=== PATIENT | female | born 1995 | race Caucasian/White ===

== ENCOUNTER 2020-08-25 17:54 | Outpatient (REF) | payer OTHER, SELFPAY ==
[2020-08-25 18:07] LABS: MANUAL DIFF FLAG NO
[2020-08-25 18:33] LABS: Basophils Percent Auto 0.3 % (0-2); Eosinophils Absolute Auto 0.2 X10*3/uL (0.0-0.4); Eosinophils Percent Auto 1.4 % (0-4); Hemoglobin 14.1 g/dl (12.0-16.0); Imm Gran Abs Auto 0.02 X10*3/uL (0.00-0.03); Imm Gran Pct Auto 0.2 % (0.0-0.4); Lymphocytes Percent Auto 38.1 % (20-40); Mean Corpuscular HGB Conc 33.6 g/dl (31.0-35.0); Mean Corpuscular Volume 86.2 fL (80-98); Mean Platelet Volume 9.7 fL (9.4-12.3); Monocytes Absolute Auto 0.7 X10*3/uL (0.1-1.2); Monocytes Percent Auto 6.3 % (2-11); Neutrophils Absolute Auto 5.6 X10*3/uL (2.0-8.3); Neutrophils Percent Auto 53.7 % (45-73); Platelet Count 387 X10*3/uL (160-400); Red Blood Count 4.87 X10*6/uL (4.20-5.50); Red Cell Distribution Width 12.8 % (11.0-16.0); White Blood Count 10.5 X10*3/uL (4.8-10.8)
[2020-08-25 18:40] LABS: Alanine Aminotransferase 8 U/L (0-31); Albumin Level 4.6 g/dL (3.5-5.0); Alkaline Phosphatase 66 U/L (39-117); Anion Gap 17 (12-20); Aspartate Amino Transferase 13 U/L (5-31); Bilirubin Total 0.4 mg/dL (0.0-1.0); Blood Urea Nitrogen 9 mg/dL (9-16); Calcium 9.2 mg/dL (8.4-10.2); Carbon Dioxide 19 mmol/L (22-29); Chloride 104 mmol/L (96-108); Estimated Glomerular Filt Rate > 60; Glucose Random 84 mg/dL (60-115); Potassium 3.9 mmol/L (3.3-5.1); Sodium 136 mmol/L (135-145); Total Protein 7.2 g/dL (6.5-8.0)
[2020-08-25 19:00] LABS: Thyroid Stimulating Hormone 2.13 uIU/mL (0.32-4.0)
[2020-08-26 08:51] LABS: ~Hepatitis C Antibody Nonreactive (Nonreactive)
== END 2020-08-25 17:55 | disposition home or self-care (01) ==
LOC: HO.LAB 17:54
PROVIDERS: PCP Family Medicine; Visit Provider Family Medicine
DX: Z11.59 Encounter for screening for other viral diseases (principal)
CPT/HCPCS: 36415; 80053; 84443; 85025; 86803

== ENCOUNTER 2022-05-14 16:57 | Emergency (ER) | payer OTHER, SELFPAY ==
--- NOTE | ~2022-05-14 | XR_ITS ---
EXAMINATION: XR CHEST CLINICAL INFORMATION: Cough COMPARISON: None TECHNIQUE: Frontal view of the chest was obtained. FINDINGS: Cardiac silhouette is normal in size. The lungs are well aerated. There is no lobar consolidation. No pleural effusion or pneumothorax. XR/XR chest 1V IMPRESSION: No acute pulmonary pathology.
[2022-05-14 18:40] VITALS: BP 105/66; PULSE 87; RESP 18; TEMP 36.8; O2SAT 98; BMI 31.3
--- NOTE | 2022-05-14 18:40 | ED.GENADULT ---
HPI - General Adult General Chief complaint: Upper Respiratory Symptoms <Joslyn Ray MD - Last Filed: 05/14/22 18:49> Stated complaint: facial pain, n+v,congested <Joslyn Ray MD - Last Filed: 05/14/22 18:49> Time Seen by Provider: 05/14/22 19:54 <Joslyn Ray MD - Last Filed: 05/14/22 18:49> Source: patient <LISSY Chavarria - Last Filed: 05/15/22 01:09> Mode of arrival: ambulatory <LISSY Chavarria - Last Filed: 05/15/22 01:09> History of Present Illness HPI narrative: 26-year-old female with a past medical history of influenza presenting to the ED complaining of continued productive cough, sore throat, nasal congestion, and left-sided sinus pain with sinus drainage x2 wks. Admits was seen at another emergency department over the weekend, believes she finished course of Tamiflu without relief. Denies known fever, drainage from ear, hearing loss, inability to swallow, CP/SOB, abdominal pain <LISSY Chavarria - Last Filed: 05/15/22 01:09> Onset (ago): week(s) <LISSY Chavarria - Last Filed: 05/15/22 01:09> Related Data Home medications: Previous Rx's Medication Instructions Recorded azithromycin 250 mg tablet See Rx Instructions PO .COMPLEX #6 05/14/22 tabs benzonatate 100 mg capsule 100 mg PO TID PRN cough #14 caps 05/14/22 fluticasone propionate 50 2 spray intranasal DAILY #16 grams 05/14/22 mcg/actuation nasal spray,suspension (Flonase Allergy Relief) <Joslyn Ray MD - Last Filed: 05/14/22 18:49> Allergies/adverse reactions: Allergies Allergy/AdvReac Type Severity Reaction Status Date / Time No Known Allergies Allergy Verified 05/14/22 18:43 [No Known Allergies*] <Joslyn Ray MD - Last Filed: 05/14/22 18:49> Review of Systems Review of Systems: Constitutional: No Fever, No Chills ENT/Mouth: No Ear Pain, + Nasal Congestion, + Sinus Pain, No Hoarseness, + sore throat, + Rhinorrhea, No Swallowing Difficulty Cardiovascular: No Chest Pain, No SOB Respiratory: + Cough, + Sputum, No Wheezing Gastrointestinal: No Nausea, No Vomiting, No Diarrhea, No Constipation, No Abdominal pain Genitourinary: No Dysuria, No Urinary Frequency, No Hematuria, No Flank Pain Musculoskeletal: No joint pain, No Myalgias, No Joint Swelling Skin: No Skin Lesions, No rash Neuro: No Weakness <LISSY Chavarria - Last Filed: 05/15/22 01:09> Yes all other systems are reviewed and are negative <LISSY Chavarria - Last Filed: 05/15/22 01:09> Constitutional: Constitutional: Reports as per HPI <LISSY Chavarria - Last Filed: 05/15/22 01:09> [facility] Past Medical History Attestation statement: The following information was validated with the patient. <LISSY Chavarria - Last Filed: 05/15/22 01:09> Social History Social History: Social History Smoked in Last 30 Days: No Use of substances other than those prescribed or required for medical reasons: No Advance Directives: No Advance Directives Information Provided: No Patient : No <Joslyn Ray MD - Last Filed: 05/14/22 18:49> Physical Exam ED Vital Signs: Vital Signs - 24 hr 05/14/22 18:40 05/14/22 21:07 Temperature 98.3 F 98.9 F Pulse Rate 87 72 Respiratory Rate 18 16 Blood Pressure 105/66 108/64 Pulse Oximetry 98 99 Oxygen Delivery Method Room Air Room Air BMI result Body Mass Index 31.3 <Joslyn Ray MD - Last Filed: 05/14/22 18:49> Vital Signs - 24 hr 05/14/22 18:40 05/14/22 21:07 Temperature 98.3 F 98.9 F Pulse Rate 87 72 Respiratory Rate 18 16 Blood Pressure 105/66 108/64 Pulse Oximetry 98 99 Oxygen Delivery Method Room Air Room Air BMI result Body Mass Index 31.3 <LISSY Chavarria - Last Filed: 05/15/22 01:09> Const General: cooperative, healthy appearing and no acute distress <LISSY Chavarria - Last Filed: 05/15/22 01:09> Orientation/consciousness: patient oriented x3 <LISSY Chavarria - Last Filed: 05/15/22 01:09> Limitations: no limitations <LISSY Chavarria Last Filed: 05/15/22 01:09> HENMT Head: Yes normal to inspection and Yes atraumatic <LISSY Chavarria - Last Filed: 05/15/22 01:09> Ears: hearing grossly normal bilaterally, TM's normal bilaterally and mastoids normal <LISSY Chavarria - Last Filed: 05/15/22 01:09> General nose exam: Normal external nose present <LISSY Chavarria Last Filed: 05/15/22 01:09> Face and sinus: Yes normal facial exam and Yes sinus tenderness (+left maxillary) <LISSY Chavarria - Last Filed: 05/15/22 01:09> Mouth: Normal oral and palatal mucosa present, no drooling and no muffled voice <LISSY Chavarria Last Filed: 05/15/22 01:09> Throat: Yes posterior oropharynx normal, Yes tonsils normal, Yes uvula midline, No peritonsillar mass and No uvula laterally displaced <LISSY Chavarria Last Filed: 05/15/22 01:09> Eyes General: appearance normal, both eyes and all related structures <LISSY Chavarria Last Filed: 05/15/22 01:09> EOM: EOMs intact bilaterally <LISSY Chavarria Last Filed: 05/15/22 01:09> Neck Neck: Yes normal visual inspection, Yes no lymphadenopathy, Yes no meningeal signs and Yes trachea midline <LISSY Chavarria - Last Filed: 05/15/22 01:09> Resp Effort & Inspection: normal respiratory effort and no respiratory distress <LISSY Chavarria Last Filed: 05/15/22 01:09> Auscultation: clear to auscultation bilaterally, no crackles, no rales, no rhonchi and no wheezes <LISSY Chavarria Last Filed: 05/15/22 01:09> Cardio Rate: regular rate <Michell Bedoya PA - Last Filed: 05/15/22 01:09> Heart sounds: S1 normal heart sound present and S2 normal heart sound present <Michell Bedoya PA - Last Filed: 05/15/22 01:09> GI Inspection: Yes normal to inspection <Michell Bedoya PA - Last Filed: 05/15/22 01:09> Palpation (GI): Soft to palpation, nontender, no guarding and not rigid <Michell Bedoya PA - Last Filed: 05/15/22 01:09> General: Yes no CVA tenderness <Michell Mact PA - Last Filed: 05/15/22 01:09> Back/Spine/Pelvis Back: no CVA tenderness <Michell Poulghislainet PA - Last Filed: 05/15/22 01:09> Skin Rashes: no rashes <Michell Bedoya PA - Last Filed: 05/15/22 01:09> Wounds: no wounds <Michell Bedoya PA - Last Filed: 05/15/22 01:09> Neuro General: patient oriented x3, tone normal and no meningeal signs <Michell Bedoya PA - Last Filed: 05/15/22 01:09> Gait exam (Neuro): Normal gait present <Michell Bedoya PA - Last Filed: 05/15/22 01:09> Extrem General: Yes normal to inspection <Michell Bedoya PA - Last Filed: 05/15/22 01:09> Course Course Course Narrative: 26F kids have been sick and patient has had persistent cough, had Influenza+ VS Reviewed GEN: mild discomfort HEENT: NC/AT, EOMI/PERRLA, purulent drainage from left nare, left maxillary sinus on palpation, ears wnl PULM: CTAB CVS: RRR ABD: NT/ND - Strep/SARS, combo analgesics <Joslyn Ray MD - Last Filed: 05/14/22 18:49> 26F kids have been sick and patient has had persistent cough, had Influenza+ VS Reviewed GEN: mild discomfort HEENT: NC/AT, EOMI/PERRLA, purulent drainage from left nare, left maxillary sinus on palpation, ears wnl PULM: CTAB CVS: RRR ABD: NT/ND - Strep/SARS, combo analgesics -1216--influenza A positive. CXR unremarkable. Due to continued symptoms will prescribe patient Z-pack, recommended close follow-up with PCP Results discussed with patient including worrisome signs and symptoms and strict return precautions, and when to return to the emergency department. They verbalized understanding and feel safe for discharge at this time. <LISSY Chavarria - Last Filed: 05/15/22 01:09> Medications Administered Discontinued Medications Generic Name Dose Route Start Last Admin Trade Name Freq PRN Reason Stop Dose Admin Acetaminophen 975 mg 05/14/22 18:43 05/14/22 20:06 Acetaminophen 325 Mg Tablet PO 05/14/22 18:44 975 mg ONCE ONE Administration Ibuprofen 400 mg 05/14/22 18:43 05/14/22 20:05 Ibuprofen 400 Mg Tablet PO 05/14/22 18:44 400 mg ONCE ONE Administration <Joslyn Ray MD - Last Filed: 05/14/22 18:49> Medications Administered Discontinued Medications Generic Name Dose Route Start Last Admin Trade Name Freq PRN Reason Stop Dose Admin Acetaminophen 975 mg 05/14/22 18:43 05/14/22 20:06 Acetaminophen 325 Mg Tablet PO 05/14/22 18:44 975 mg ONCE ONE Administration Ibuprofen 400 mg 05/14/22 18:43 05/14/22 20:05 Ibuprofen 400 Mg Tablet PO 05/14/22 18:44 400 mg ONCE ONE Administration <LISSY Chavarria - Last Filed: 05/15/22 01:09> Medical Decision Making Medical Decision Making MDM Narrative: 26-year-old female with a past medical history of influenza presenting to the ED complaining of continued productive cough, sore throat, nasal congestion, and left-sided sinus pain with sinus drainage x2 wks. On exam vital signs stable, NAD, nontoxic appearing, sinus tenderness noted, lungs CTA, exam otherwise nonfocal. Concern for sinusitis vs continued viral syndrome vs bronchitis or pneumonia. Symptoms atypical for ACS/PE. No evidence of DOUBLE END SEWER Plan: COVID-19/influenza/RSV testing, rapid strep, CXR <LISSY Chavarria - Last Filed: 05/15/22 01:09> Differential Diagnoses: Differential diagnosis (As above) Differential Diagnosis: The differential diagnosis associated with the patient?s presentation includes: <LISSY Chavarria - Last Filed: 05/15/22 01:09> Tests considered but not performed: Tests Considered But Not Performed (labs) The following testing was considered but ultimately not selected after discussion with patient/family. <LISSY Chavarria - Last Filed: 05/15/22 01:09> Discharge Plan Discharge Clinical Impression: Upper respiratory infection, Influenza, Sinusitis <Joslyn Ray MD - Last Filed: 05/14/22 18:49> Patient Disposition: Home, Self-Care <Joslyn Ray MD - Last Filed: 05/14/22 18:49> Instructions: Sinusitis (ED), Influenza (ED), Upper Respiratory Infection (ED) <Joslyn Ray MD - Last Filed: 05/14/22 18:49> Additional Instructions: You tested positive for influenza A. You tested negative for strep throat & your chest x-ray was unremarkable Tessalon Perles for cough, take as needed. Take Tylenol & Motrin for pain/fever Make sure you are staying hydrated. Flonase is a nasal decongestant spray, please use as prescribed If symptoms persist or worsen return to the emergency department Place of close follow-up with her doctor <Joslyn Ray MD - Last Filed: 05/14/22 18:49> Prescriptions: New azithromycin 250 mg tablet See Rx Instructions .ROUTE .COMPLEX Qty: 6 0RF Rx Instructions: take 500 mg today (day 1), then 250 mg for 4 days (days 2-5) benzonatate 100 mg capsule 100 mg PO TID PRN (Reason: cough) Qty: 14 0RF fluticasone propionate [Flonase Allergy Relief] 50 mcg/actuation spray,suspension 2 spray intranasal DAILY Qty: 16 0RF Rx Instructions: administer into each nostril <Joslyn Ray MD - Last Filed: 05/14/22 18:49> Referrals: Physician,Unknown J [Primary Care Provider] - 3 days <Joslyn Ray MD - Last Filed: 05/14/22 18:49> Stand Alone Forms: Work/School Release <Joslyn Ray MD - Last Filed: 05/14/22 18:49> Interventions: ED Discharge Assessment Last Done: 05/14/22 21:24 <Joslyn Ray MD - Last Filed: 05/14/22 18:49> Discharge Date/Time: 05/14/22 21:25 <Joslyn Ray MD - Last Filed: 05/14/22 18:49>
[2022-05-14] MEDS: Ibuprofen 400 MG TABLET PO (20:05)
[2022-05-14] MEDS: Acetaminophen 325 MG TABLET 975 MG PO (20:06)
--- NOTE | 2022-05-14 20:07 | PC.NURSE ---
Pt swabbed for Covid/Strep, medicated per MAR for left throat and left facial pain 10/17. Awaiting chest xray, aware of plan of care.
[2022-05-14 20:09] LABS: Strep A Nucleic Acid Negative (Negative)
[2022-05-14 20:54] LABS: Influenza A PCR POSITIVE (Negative); Influenza B PCR NEGATIVE (Negative); Resp Syncy Virus RNA Qual PCR NEGATIVE (Negative); SARS COV2 PCR INHOUSE NEGATIVE (Negative)
[2022-05-14 21:07] VITALS: BP 108/64; PULSE 72; RESP 16; TEMP 37.2; O2SAT 99
== END 2022-05-14 21:25 | disposition home or self-care (01) ==
PROVIDERS: Student in an Organized Health Care Education/Training Program; Emergency Provider Emergency Medicine
DX: J10.1 Influenza due to other identified influenza virus with other respiratory manifestations (principal); J01.90 Acute sinusitis, unspecified; R05.9 Cough, unspecified; Z20.822 Contact with and (suspected) exposure to COVID-19; Z79.899 Other long term (current) drug therapy
CPT/HCPCS: 0241U; 36415; 71045; 87651; 99283; 99284

== ENCOUNTER 2024-06-01 00:33 | Emergency (ER) | payer OTHER, SELFPAY ==
--- OUTSIDE RECORDS SUMMARY | 2024-06-01 00:36 | XMS_ITS ---
Author Name [facility] Organization Unknown Results Test Name/Text Value Interpretation Date Range Source Bacteria Throat Cult SEE NOTE Normal [id number] [facility] History of Medication Use Medication Directions Dispensed Refills Start Date End Date Stat lidocaine (XYLOCAINE) 2 % solution Take 5 mL by mouth 4 (four) times a day as needed for mild pain or moderate pain. Gargle then spit 05/03/2024 06/09/9999 active No known medications No known medications 05/29/2022 active Problems Problem Status Onset Date Problem Type Date of Resoluti on Source Episodic tension-type headache active 2024-05-01 [facility]Act [facility] Sore throat active EncounterDiagnosis[facility] Viral URI active EncounterDiagnosisAct [facility]
[2024-06-01 00:37] VITALS: BP 103/69; PULSE 88; RESP 18; TEMP 37; O2SAT 98; BMI 29.7
[2024-06-01 00:53] VITALS: BP 101/66; PULSE 83; RESP 16; TEMP 36.6; O2SAT 98
[2024-06-01 01:07] LABS: Appearance Urine Cloudy; Color Urine Yellow; Glucose Urine UA Negative (Negative); Leukocyte Esterase Urine Moderate (2+) (Negative); Nitrite Urine Positive (Negative); PH 5.5 (5.0-9.0); UMIC TRIGGER UACC YES; Urine Blood Large (3+) (Negative); Urine Ketones Negative (Negative); Urine Protein 100 (2+) mg/dL (Neg-Trace)
[2024-06-01 01:08] LABS: UPreg QC Valid YES; Urine Pregnancy NEGATIVE (NEGATIVE)
[2024-06-01 01:09] LABS: Bacteria Urine 3+ (None Seen); Hyaline Casts Urine 0-2 /LPF (0-2); RBC Urine >20 /HPF (0-2); Squamous Epithelial Cell Urine 0-2 /HPF (0-2); UACC Culture Trigger YES; WBC Urine >50 /HPF (0-5)
--- NOTE | 2024-06-01 01:15 | ED.FEMALEGU ---
HPI - Female Genitourinary General Chief complaint: Urogenital-Female Stated complaint: UTI Time Seen by Provider: 06/01/24 01:06 Source: patient, RN notes reviewed and old records reviewed Mode of arrival: ambulatory Limitations: no limitations History of Present Illness ED Provider: Marjan GILL Narrative: 28-year-old female presents for evaluation of burning with urination. She reports that her symptoms 1st started around 9:00 p.m. last night. She woke up again just before arrival with burning during urination. She reports some blood on the toilet paper after wiping Denies any vaginal bleeding or discharge. Denies any fevers or chills. Denies any flank pain Related Data Previous Rx's ?Medication ?Instructions ?Recorded azithromycin 250 mg tablet See Rx Instructions PO .COMPLEX #6 05/14/22 tabs benzonatate 100 mg capsule 100 mg PO TID PRN cough #14 caps 05/14/22 fluticasone propionate 50 2 spray intranasal DAILY #16 grams 05/14/22 mcg/actuation nasal spray,suspension (Flonase Allergy Relief) cefuroxime axetil 250 mg tablet 250 mg PO Q12H #10 tabs 06/01/24 phenazopyridine 200 mg tablet 200 mg PO TID PRN pain 6 doses #6 06/01/24 (Pyridium) tabs Allergies Allergy/AdvReac Type Severity Reaction Status Date / Time No Known Allergies Allergy Verified 06/01/24 00:39 [No Known Allergies*] Review of Systems Constitutional: Constitutional: Denies body ache(s), Denies chills and Denies fever(s) Eyes: Eyes: Denies blurry vision Genitourinary: Genitourinary: Reports dysuria, Denies pelvic pain and Denies vaginal discharge [facility] [place] Social History Social History Smoked in Last 30 Days: No Substance Use Type: Marijuana Advance Directives: No Advance Directives Information Provided: Yes Patient : No Physical Exam Vital Signs: Vital Signs: Last Vital Signs Temp 97.8 F 06/01/24 01:23 Pulse 83 06/01/24 01:23 Resp 16 06/01/24 01:23 BP 101/66 06/01/24 01:23 Pulse Ox 98 06/01/24 01:23 O2 Del Method Room Air 06/01/24 01:23 BMI result Body Mass Index 29.7 Const: General: healthy appearing, comfortable, no acute distress, alert and awake Nutritional Appearance: well nourished Orientation/consciousness: patient oriented x3 HEENT: Head: Yes normocephalic and Yes atraumatic Eyes: Eyelids: Yes eyelids normal Conjunctivae: conjunctivae normal Sclerae: sclerae normal Corneas: corneas normal Pupils: Equal, round and reactive pupils present EOM: EOMs intact bilaterally Neck: Neck: Yes full ROM Resp: Effort & Inspection: normal respiratory effort, able to speak in complete sentences and not labored Skin: General skin exam: elasticity normal Neuro: General: patient oriented x3 Cranial nerves: Yes Equal, round and reactive pupils present and Yes Bilaterally intact EOM present Cognition (Neuro): normal cognition Medications Administered Discontinued Medications Generic Name Dose Route Start Last Admin Trade Name Freq PRN Reason Stop Dose Admin Cefuroxime Axetil 500 mg 06/01/24 01:14 06/01/24 01:22 Cefuroxime Axetil 500 Mg Tablet PO 06/01/24 01:15 500 mg ONCE ONE Administration Phenazopyridine HCl 200 mg 06/01/24 01:14 06/01/24 01:22 Phenazopyridine Hcl 200 Mg Tablet PO 06/01/24 01:15 200 mg ONCE ONE Administration Medical Decision Making Medical Decision Making [facility] Narrative: Patient's history is most consistent with a UTI, urinalysis confirms the patient does not fact have a UTI. She is not concerned for sexually transmitted infections as shortness 1 sexual partner and denies any vaginal bleeding or discharge. Plan to treat with cefuroxime and Pyridium Differential Diagnosis Differential Diagnoses: The differential diagnosis associated with the presentation includes UTI Cystitis Bacterial vaginosis Pelvic pain Pyelonephritis Obstructive uropathy Lab Data [facility] Lab Attestation statement: I reviewed the patient's lab results. Urinalysis consistent with a UTI Labs: Lab Results 06/01/24 Range/Units 01:00 Urine Color Yellow Urine Appearance Cloudy Urine pH 5.5 (5.0-9.0) Ur Specific [place] 1.020 (1.005-1.025) Urine Protein 100 (2+) H (Neg-Trace) mg/dL Urine Glucose (UA) Negative (Negative) mg/dL Urine Ketones Negative (Negative) mg/dL Urine Blood Large (3+) H (Negative) Urine Nitrite Positive H (Negative) Ur Leukocyte Esterase Moderate (2+) H (Negative) Urine RBC >20 H (0-2) /HPF Urine WBC >50 H (0-5) /HPF Ur Squamous Epith Cells 0-2 (0-2) /HPF Urine Bacteria 3+ (None Seen) Hyaline Casts 0-2 (0-2) /LPF Urine Test NEGATIVE (NEGATIVE) Discharge Plan Discharge Clinical Impression: Urinary tract infection Patient Disposition: Home, Self-Care Instructions: Urinary Tract Infection in Women (ED) Additional Instructions: Take the cefuroxime twice daily for the next 5 days. You may use the Pyridium as needed for urinary discomfort Drink lots of fluids. Follow-up with your primary doctor, return for new or worsening symptoms Prescriptions: New cefuroxime axetil 250 mg tablet 250 mg PO Q12H Qty: 10 0RF phenazopyridine [Pyridium] 200 mg tablet 200 mg PO TID PRN (Reason: pain) Qty: 6 0RF No Action azithromycin 250 mg tablet See Rx Instructions .ROUTE .COMPLEX Qty: 6 0RF Rx Instructions: take 500 mg today (day 1), then 250 mg for 4 days (days 2-5) benzonatate 100 mg capsule 100 mg PO TID PRN (Reason: cough) Qty: 14 0RF fluticasone propionate [Flonase Allergy Relief] 50 mcg/actuation spray,suspension 2 spray intranasal DAILY Qty: 16 0RF Rx Instructions: administer into each nostril Interventions: ED Discharge Assessment Last Done: 06/01/24 01:23 Discharge Date/Time: 06/01/24 01:27 Print Language: [place]
[2024-06-01] MEDS: cefuroxime axetiL 500 MG TABLET PO (01:22)
[2024-06-01] MEDS: Phenazopyridine HCL 200 MG TABLET PO (01:22)
[2024-06-01 01:23] VITALS: BP 101/66; PULSE 83; RESP 16; TEMP 36.6; O2SAT 98
== END 2024-06-01 01:27 | disposition home or self-care (01) ==
PROVIDERS: Emergency Provider Emergency Medicine
DX: N39.0 Urinary tract infection, site not specified (principal); B96.20 Unspecified Escherichia coli [E. coli] as the cause of diseases classified elsewhere
CPT/HCPCS: 81001; 81025; 87086; 87088; 87186; 99283; 99284

== ENCOUNTER 2024-09-02 06:46 | Emergency (ER) | payer OTHER, SELFPAY ==
[2024-09-02 06:49] VITALS: BP 98/63; PULSE 65; RESP 20; TEMP 36.8; O2SAT 98; BMI 27.4
--- NOTE | 2024-09-02 07:02 | ED_ITS ---
HPI - General Adult General Chief complaint: Skin/Abscess/Foreign Body Stated complaint: rash Time Seen by Provider: 09/02/24 06:54 Source: patient, RN notes reviewed and old records reviewed Mode of arrival: ambulatory Limitations: no limitations History of Present Illness ED Provider: Evelyn HPI narrative: Patient is a 29-year-old female with history of eczema presenting to the emerge ncy department with complaint of pruritic rash which began several days ago. Describes rash as erythematous papules to arms, legs, neck. States she was taking Shaunna and mixing hydrocortisone cream together with lotrimin. States rash has since resolved but itching has continued. Has not changed laundry detergent. Did recently move in with her grandmother and states the house was not well-kept. Denies shortness of breath, difficulty swallowing, swelling to lips or tongue. MD complaint: itching Onset (ago): day(s) Related Data Previous Rx's ?Medication ?Instructions ?Recorded azithromycin 250 mg tablet See Rx Instructions PO .COMPLEX #6 05/14/22 tabs benzonatate 100 mg capsule 100 mg PO TID PRN cough #14 caps 05/14/22 fluticasone propionate 50 2 spray intranasal DAILY #16 grams 05/14/22 mcg/actuation nasal spray,suspension (Flonase Allergy Relief) cefuroxime axetil 250 mg tablet 250 mg PO Q12H #10 tabs 06/01/24 phenazopyridine 200 mg tablet 200 mg PO TID PRN pain 6 doses #6 06/01/24 (Pyridium) tabs nitrofurantoin 100 mg PO Q12H 7 days #14 caps 06/06/24 monohydrate/macrocrystals 100 mg capsule (Macrobid) cetirizine 10 mg tablet (All Day 10 mg PO DAILY #7 tabs 09/02/24 Allergy (cetirizine)) famotidine 20 mg tablet 20 mg PO DAILY #7 tabs 09/02/24 prednisone 20 mg tablet 20 mg PO DAILY #5 tabs 09/02/24 Allergies Allergy/AdvReac Type Severity Reaction Status Date / Time environmental allergies AdvReac Itching Verified 09/02/24 06:53 Review of Systems Review of Systems: As per HPI Yes all other systems are reviewed and are negative Constitutional: Constitutional: Reports as per HPI PMFSH Social History Social History Substance Use Type: Marijuana Advance Directives: No Advance Directives Information Provided: Yes Do you have a plan to hurt others: No Plan Physical Exam ED Vital Signs: Vital Signs - 24 hr 09/02/24 06:49 Temperature 98.3 F Pulse Rate 65 Respiratory Rate 20 Blood Pressure 98/63 Pulse Oximetry 98 Oxygen Delivery Method Room Air BMI result Body Mass Index 27.4 Vital signs have been reviewed and appear to be correct. Blood pressure normal. Heart rate normal. Respiratory rate normal. Temperature normal. Oxygen saturation normal. Const General: cooperative, healthy appearing and no acute distress Orientation/consciousness: oriented to person, oriented to place, oriented to time and patient oriented x3 Limitations: no limitations HENMT Head: Yes normocephalic and Yes atraumatic Ears: external ears normal General nose exam: Normal external nose present Face and sinus: Yes face symmetric Mouth: oropharynx normal and moist mucous membranes Throat: Yes uvula midline Eyes Pupils: Equal, round and reactive pupils present Neck Neck: Yes normal visual inspection and Yes supple Resp Effort & Inspection: normal respiratory effort and able to speak in complete sentences Auscultation: clear to auscultation bilaterally Cardio Rate: regular rate Rhythm: regular rhythm Heart sounds: S1 normal heart sound present and S2 normal heart sound present GI Palpation (GI): Soft to palpation and nontender Auscultation: normoactive bowel sounds General: Yes no CVA tenderness Back/Spine/Pelvis Back: no CVA tenderness Skin General skin exam: no rashes or lesions noted, elasticity normal and turgor normal Neuro General: oriented to person, oriented to place, oriented to time, patient oriented x3, moves all extremities, no focal motor deficits and CN's II-XI intact bilaterally Cranial nerves: Yes Equal, round and reactive pupils present Cognition (Neuro): normal cognition Extrem General: Yes full ROM, Yes no pedal edema and Yes no calf tenderness Psych Mental Status: mental status grossly normal Affect: normal affect Thought process: Normal thought process present Medical Decision Making Medical Decision Making MDM Narrative: Patient is a 29-year-old female with history of eczema presenting to the emergency department with complaint of pruritic rash which began several days ago. On exam patient is awake, A+Ox3, VS WNL, afebrile, normal neurological exam without focal deficits, physical exam findings as above. Given reported symptoms and physical exam findings, initial differential includes but is not limited to contact dermatitis, atopic dermatitis. No suspicion of TEN/SJS, DRESS, TTP/DIC, necrotizing fasciitis, meningococcemia, SSSS, TSS, anaphylaxis. Patient expressing concern that rash could have been scabies or bed bugs, disc ussed with patient that with either of those etiologies, rash would not have resolved within 2-3 days. Will send prescriptions for prednisone, famotidine, Zyrtec. Return precautions discussed. Advised patient to thoroughly wash all bedding. Follow up with PCP as needed. Patient verbalized understanding of and agreement with plan. Differential Diagnosis Differential Diagnoses: The differential diagnosis associated with the presentation includes As per [facility] External Record Review External record reviewed: Inpatient record, Office record and Outpatient record Prescription Management I considered prescription management with: Other Discharge Plan Discharge Clinical Impression: Contact dermatitis Patient Disposition: Home, Self-Care Instructions: Contact Dermatitis (DC) Additional Instructions: You were evaluated in the emergency department today for a rash. Your evaluation did not reveal evidence of conditions requiring emergent medical treatment. You are being prescribed a tapering dose of a steroid called prednisone to decrease inflammation. We also recommend that you take a daily antihistamine such as loratadine (Claritin) or cetirizine (Zyrtec). You can also add over the counter famotidine (Pepcid) which is a different type of antihistamine. You can apply a thick unscented lotion to the affected areas such as Eucerine or Vanicream several times daily. Follow up with your primary care provider this week. If your symptoms do not improve, follow up with a dredge boat engineer. Return to the emergency department if you develop difficulty breathing or shortness of breath, swelling to lips, tongue, fever, rash inside your mouth or to your palms/soles or any other concerning symptoms. Prescriptions: New prednisone 20 mg tablet 20 mg PO DAILY Qty: 5 0RF cetirizine [All Day Allergy (cetirizine)] 10 mg tablet 10 mg PO DAILY Qty: 7 0RF famotidine 20 mg tablet 20 mg PO DAILY Qty: 7 0RF No Action azithromycin 250 mg tablet See Rx Instructions .ROUTE .COMPLEX Qty: 6 0RF Rx Instructions: take 500 mg today (day 1), then 250 mg for 4 days (days 2-5) benzonatate 100 mg capsule 100 mg PO TID PRN (Reason: cough) Qty: 14 0RF fluticasone propionate [Flonase Allergy Relief] 50 mcg/actuation spray,suspension 2 spray intranasal DAILY Qty: 16 0RF Rx Instructions: administer into each nostril cefuroxime axetil 250 mg tablet 250 mg PO Q12H Qty: 10 0RF phenazopyridine [Pyridium] 200 mg tablet 200 mg PO TID PRN (Reason: pain) Qty: 6 0RF nitrofurantoin monohyd/m-cryst [Macrobid] 100 mg capsule 100 mg PO Q12H 7 Days Qty: 14 0RF Rx Instructions: must administer with a meal/food Print Language: Bolivian
[2024-09-02 07:50] VITALS: BP 98/63; PULSE 65; RESP 20; TEMP 36.8; O2SAT 98
== END 2024-09-02 07:55 | disposition home or self-care (01) ==
PROVIDERS: Emergency Provider Emergency Medicine
DX: L25.9 Unspecified contact dermatitis, unspecified cause (principal); R21 Rash and other nonspecific skin eruption
CPT/HCPCS: 99282; 99283

== ENCOUNTER 2025-02-09 18:52 | Emergency (ER) | payer OTHER, SELFPAY ==
[2025-02-09 19:17] VITALS: BP 104/66; PULSE 88; RESP 18; TEMP 37.8; O2SAT 97; BMI 30.4
--- NOTE | 2025-02-09 19:17 | ED_ITS ---
HPI - General Adult General Chief complaint: Nausea/Vomiting/Diarrhea Stated complaint: Flu like symptoms Time Seen by Provider: 02/09/25 20:10 Source: patient Limitations: no limitations History of Present Illness ED Provider: Johanna Prado PA-C HPI narrative: 29-year-old female presents with viral syndrome x2 days. Associated sore throat cough nausea, generalized malaise, myalgias and headache. Patient states 2 of her family members have COVID at home. Denies known fever. Related Data Previous Rx's ?Medication ?Instructions ?Recorded azithromycin 250 mg tablet See Rx Instructions PO .COM PLEX #6 05/14/22 tabs benzonatate 100 mg capsule 100 mg PO TID PRN cough #14 caps 05/14/22 fluticasone propionate 50 2 spray intranasal DAILY #16 grams 05/14/22 mcg/actuation nasal spray,suspension (Flonase Allergy Relief) cefuroxime axetil 250 mg tablet 250 mg PO Q12H #10 tab s 06/01/24 phenazopyridine 200 mg tablet 200 mg PO TID PRN pain 6 doses #6 06/01/24 (Pyridium) tabs nitrofurantoin 100 mg PO Q12H 7 days #14 ca ps 06/06/24 monohydrate/macrocrystals 100 mg capsule (Macrobid) cetirizine 10 mg tablet (All Day 10 mg PO DAILY #7 tab s 09/02/24 Allergy (cetirizine)) famotidine 20 mg tablet 20 mg PO DAILY #7 tabs 09/02 prednisone 20 mg tablet 20 mg PO DAILY #5 tabs 09/02 ondansetron 4 mg disintegrating 4 mg PO Q8H PRN nausea and 02/09/25 tablet vomiting #10 tabs Allergies Allergy/AdvReac Type Severity Reaction Status Date / Time environmental allergies AdvReac Itching Verified 02/09/25 19:20 Review of Systems 2 Review of Systems: Yes all other systems are reviewed and are negative Constitutional: Constitutional: Reports fatigue, Denies fever(s), Reports headache(s) and Reports malaise ENT: Reports headache(s) and Reports sore throat Cardiovascular: Cardiovascular: Denies chest pain and Denies dyspnea Respiratory: Respiratory: Denies dyspnea Gastrointestinal: Gastrointestinal: Denies abdominal pain, Reports nausea and Denies vomiting Neurologic: Reports headache(s) Endocrine: Endocrine: Reports fatigue [facility] Past Medical History Attestation statement: The following information was validated with the patient. Social History Social History Substance Use Type: Marijuana Advance Directives: No Advance Directives Information Provided: No Physical Exam ED Vital Signs: Vital Signs - 24 hr 02/09/25 19:17 02/09/25 20:00 02/09/25 21:42 Temperature 100.0 F 98.5 F 98.5 F Pulse Rate 88 68 68 Respiratory Rate 18 15 15 Blood Pressure 104/66 118/76 118/76 Pulse Oximetry 97 100 100 Oxygen Delivery Method Room Air Room Air Room Air 02/09/25 21:45 Temperature 98.7 F Pulse Rate 78 Respiratory Rate 15 Blood Pressure 117/77 Pulse Oximetry 100 Oxygen Delivery Method Room Air BMI result Body Mass Index 30.4 Const Other: Alert, well-appearing Orientation/consciousness: patient oriented x3 HENMT Other: Oropharynx is mildly erythematous no exudate uvula midline no trismus no drooling no sublingual fluctuance no swelling inferior to the jawline Resp Effort & Inspection: normal respiratory effort Cardio Other: Normal peripheral perfusion Skin Other: Warm dry no rash Neuro General: patient oriented x3, gait normal, no focal motor deficits and CN's II- XI intact bilaterally Psych Other: Cooperative Course Course Course Narrative: This is a Rapid Medical Examination (RME) performed by Roseann Quintanilla PA-C in triage. Full HPI, ROS, assessment and treatment plan per primary provider in the Main ED. Hx: 29 yo F here for eval of nausea, decreased PO intake, dizziness, sore throat, cough. everyone at home has covid. Plan: covid/flu testing Medications Administered Discontinued Medications Generic Name Dose Route Start Last Admin Trade Name Freq PRN Reason Stop Dose Admin Sodium Chloride 1,000 mls @ 999 mls/hr 02/09/25 20:15 02/09/25 21:29 Ns IV 02/09/25 21:15 Infused .Q1H1M JOSUE Infusion Acetaminophen 1,000 mg in 100 mls @ 400 mls/hr 02/09/25 21:04 02/09/25 21:42 Ofirmev IV 02/09/25 21:18 Infused ONCE ONE Infusion Ketorolac Tromethamine 15 mg 02/09/25 21:04 02/09/25 21:17 Ketorolac Tromethamine 15 Mg/Ml Vial IVPUSH 02/09/25 21:05 15 mg ONCE ONE Administration Ondansetron HCl 4 mg 02/09/25 20:13 02/09/25 20:32 Ondansetron Hcl 4 Mg/2 Ml Vial IVPUSH 02/09/25 20:14 4 mg ONCE ONE Administration Medical Decision Making Medical Decision Making [facility] Narrative: 29-year-old female presents with viral syndrome x2 days. Associated sore throat cough nausea, generalized malaise, myalgias and headache. Patient states 2 of her family members have COVID at home. Denies known fever. No chronic issues History: Per patient I have considered the following differential diagnoses: Viral syndrome, strep pharyngitis, RPA, RED LEADER Plan: Given patient has close sick contacts with COVID, this is the likely cause. In addition to screening labs a viral panel was obtained. Exam of her throat was unremarkable, it is likely viral. We will give symptomatic treatment. The patient is requesting a work note. There were no exam findings consistent with RPA or RED LEADER. I have independently reviewed the following tests: Labs: No leukocytosis, not anemic, no electrolyte abnormality, not , viral panel negative Differential Diagnosis Differential Diagnoses: The differential diagnosis associated with the presentation includes See [facility] Admission/Observation Consideration of admission/observation: Escalation of care including admission/observation considered Not applicable Lab Data [facility] Lab Attestation statement: I reviewed the patient's lab results. 02/09/25 20:22 02/09/25 20:22 Labs: Lab Results 02/09/25 02/09/25 Range/Units 19:24 20:22 WBC 5.5 (4.8-10.8) X10*3/uL RBC 4.88 (4.20-5.50) X10*6/uL Hgb 14.3 (12.0-16.0) g/dl Hct 40.0 (37.0-47.0) % MCV 82.0 (80.0-98.0) fL MCH 29.3 (27.0-33.0) pg MCHC 35.8 H (31.0-35.0) g/dl RDW 12.3 (11.0-16.0) % Plt Count 312 (160-400) X10*3/uL MPV 9.9 (9.4-12.3) fL Immature Gran % (Auto) 0.5 H (0.0-0.4) % Neut % (Auto) 63.0 (45-73) % Lymph % (Auto) 21.2 (20-40) % Smyth % (Auto) 14.7 H (2-11) % Eos % (Auto) 0.2 (0-4) % Baso % (Auto) 0.4 (0-2) % Lymph # (Auto) 1.2 (1.2-4.9) X10*3/uL Smyth # (Auto) 0.8 (0.1-1.2) X10*3/uL Eos # (Auto) 0.0 (0.0-0.4) X10*3/uL Baso # (Auto) 0.0 (0.0-0.2) X10*3/uL Abs Immat Gran (auto) 0.03 (0.00-0.03) X10*3/uL Absolute Neuts (auto) 3.5 (2.0-8.3) x10*3/uL Absolute Nucleated RBC 0.000 (0.0-0.012) X10*3/uL Nucleated RBC % (auto) 0.0 (0.0-0.2) /100WBC Sodium 144 (135-145) mmol/L Potassium 3.3 (3.3-5.1) mmol/L Chloride 120 H (96-108) mmol/L Carbon Dioxide 15 L (22-29) mmol/L Anion Gap 12 (12-20) BUN 8 L (9-16) mg/dL Creatinine 0.52 (0.5-1.4) mg/dL Estim Creat Clear Calc 140.0 Estimated GFR > 60 Random Glucose 76 (60-115) mg/dL Calcium 6.5 L D (8.4-10.2) mg/dL Magnesium 1.5 L (1.6-2.6) mg/dL Total Bilirubin 0.2 (0.0-1.0) mg/dL AST 18 (5-31) U/L ALT 8 (0-31) U/L Alkaline Phosphatase 44 (39-117) U/L Total Protein 5.2 L (6.5-8.0) g/dL Albumin 3.3 L (3.5-5.0) g/dL Lipase 16 (8-78) U/L Beta HCG, Quant < 2 mIU/mL COVID-19 (ARGELIA) Negative (Negative) COVID-19 Clin Com See Note Influenza Type A (KEN) Negative (Negative) Influenza Type B (KEN) Negative (Negative) Influenza A & B Note See Note Discharge Plan Discharge Clinical Impression: Acute viral syndrome Patient Disposition: Home, Self-Care Instructions: Viral Syndrome (ED), COVID-19: Slow the Coronavirus Spread (ED) Additional Instructions: All of your screening labs were normal, you incidentally tested negative for COVID. However, this could be a false negative result given everyone in your family is sick. See home care instructions. You should be self isolating. Uses Zofran as needed for nausea. You can alternate between [id number] ibuprofen and Tylenol for body aches, headache and fever. Follow up with primary care as needed. Prescriptions: New ondansetron 4 mg tablet,disintegrating 4 mg PO Q8H PRN (Reason: nausea and vomiting) Qty: 10 0RF No Action azithromycin 250 mg tablet See Rx Instructions .ROUTE .COMPLEX Qty: 6 0RF Rx Instructions: take 500 mg today (day 1), then 250 mg for 4 days (days 2-5) benzonatate 100 mg capsule 100 mg PO TID PRN (Reason: cough) Qty: 14 0RF fluticasone propionate [Flonase Allergy Relief] 50 mcg/actuation spray,suspension 2 spray intranasal DAILY Qty: 16 0RF Rx Instructions: administer into each nostril cefuroxime axetil 250 mg tablet 250 mg PO Q12H Qty: 10 0RF phenazopyridine [Pyridium] 200 mg tablet 200 mg PO TID PRN (Reason: pain) Qty: 6 0RF nitrofurantoin monohyd/m-cryst [Macrobid] 100 mg capsule 100 mg PO Q12H 7 Days Qty: 14 0RF Rx Instructions: must administer with a meal/food prednisone 20 mg tablet 20 mg PO DAILY Qty: 5 0RF cetirizine [All Day Allergy (cetirizine)] 10 mg tablet 10 mg PO DAILY Qty: 7 0RF famotidine 20 mg tablet 20 mg PO DAILY Qty: 7 0RF Stand Alone Forms: Work/School Release Interventions: ED Discharge Assessment Last Done: 02/09/25 21:42 Discharge Date/Time: 02/09/25 22:11 Print Language: Swedish
[2025-02-09 19:43] LABS: COVID-19 Test Negative (Negative); IDNOW Serial# 58CA691E
[2025-02-09 19:45] LABS: IDNOW Serial# 55D5AD1C; Influenza B2 Negative (Negative)
[2025-02-09 20:00] VITALS: BP 118/76; PULSE 68; RESP 15; TEMP 36.9; O2SAT 100
--- OUTSIDE RECORDS SUMMARY | 2025-02-09 20:00 | XMS_ITS | Encounter Summary ---
Author Organization [facility] Address [address] [place] [id number] Phone Care Team Providers Care Box Annealer Name Role Phone Viki Cloud MD Primary Care Provider Encounter Details Date Type Department Care Team (Late st Contact Info) Description 12/29/2012 Documentation [facility] Family Medicine [address] [place] [address] Family Medicine, Physician [address], [place] [phone] Social History Tobacco Use Types Packs/Day Years Used Date Smoking Tobacco: Never Assessed Comments Unknown Sex and Gender Information Value Date Recorded Sex Assigned at Not on file Legal Sex Female 4:47 PM EDT Gender Identity Not on file Sexual Orientation Not on file documented as of this encounter Plan of Treatment Not on file documented as of this encounter Visit Diagnoses Not on filedocumented in this encounter Care Teams Box Annealer Relationship Specialty Start Date End Date Viki Cloud MD [address] [facility] [place] [address] PCP - General 01/18/17 09/18/22 documented as of this encounter
--- OUTSIDE RECORDS SUMMARY | 2025-02-09 20:00 | XMS_ITS | Clinical Summary ---
Author Organization [facility] Address [address] [place] [address] Care Team Providers Care Superintendent Construction Name Role Phone Pcp, No Primary Care Provider Unavailabl e Allergies No known active allergies Medications lidocaine (XYLOCAINE) 2 % solutionIndicat ions:Sore throat Take 5 mL by mouth 4 (four) times a day as needed for mild pain or moderate pain. Gargle then spit 100 mL 05/01/2024 Active Active Problems Problem Noted Date Diagnosed Date Episodic tension-type headache 05/01/2024 1 07/01/2023 Social History Tobacco Use Types Packs/Day Years Used Date Smoking Tobacco: Never Smokeless Tobacco: Never Tobacco Cessation:Counseling Given: Not Answered Comments Unknown Sex and Gender Information Value Date Recorded Sex Assigned at Not on file Legal Sex Female 4:00 PM EST Gender Identity Not on file Sexual Orientation Not on file Last Filed Vital Signs Vital Sign Reading Time Taken Comments Blood Pressure 102/70 05/01/2024 6:39 PM EST Pulse 71 05/01/2024 6:39 PM EST Temperature 37.2 C (98.9 F) 05/01/2024 6:39 PM EST Respiratory Rate 16 05/01/2024 6:39 PM EST Oxygen Saturation 98% 05/01/2024 6:39 PM EST Inhaled Oxygen Concentration - - Weight 65.8 kg (145 lb) 05/28/2022 6:11 PM EST Height 152.4 cm (5') 05/28/2022 6:11 PM EST Body Mass Index 28.32 05/28/2022 6:11 PM EST Plan of Treatment Health Maintenance Due Date Last Done Comments Hepatitis C Virus Screening 1995 HIV Screening 2008 DTaP/Tdap/Td Vaccines (1 - Tdap) 2014 Hepatitis B Vaccines (1 of 3 - 19+ 3-dose series) 2014 Pap Smear (Ages 21-65) 2016 HPV Vaccines (1 - 3-dose SCD M series) 2022 COVID-19 Vaccine (1 - 2023-2 5 season) 2024 Influenza Vaccine 01/08/2025 05/08/2011, 04/24/2010, 03/11/2009 Pneumococcal Vaccine: Pediatric (0-5 Years) and At-Risk Patients (6 to 49 Years) Aged Out No longer eligible b ased on patient's age to complete this topic Insurance [facility] Care Teams Superintendent Construction Relationship Specialty Start Date End Date Pcp, No PCP - General 03/31/24
--- OUTSIDE RECORDS SUMMARY | 2025-02-09 20:00 | XMS_ITS | Encounter Summary ---
Author Organization [facility] Address [address] [place] [phone] Phone Care Team Providers Care Cell Operator Name Role Phone Viki Cloud MD Primary Care Provider Encounter Details Date Type Department Care Team (Late st Contact Info) Description 12/29/2012 Documentation [facility] [address] [place] [address] Family Medicine, Physician [address] [phone] Social History Tobacco Use Types Packs/Day Years [...] on filedocumented in this encounter Care Teams Cell Operator Relationship Specialty Start Date End Date Viki Cloud MD [address] [facility] [place] [address] PCP - General 01/18/17 09/18/22 documented as of this encounter
--- OUTSIDE RECORDS SUMMARY | 2025-02-09 20:00 | XMS_ITS | Encounter Summary ---
Author Organization [facility] Address [address] [place] [phone] Phone Care Team Providers Care Helix Coil Winder Name Role Phone Viki Cloud MD Primary Care Provider Encounter Details Date Type Department Care Team (Late st Contact Info) Description 05/09/2011 Documentation [facility] Family Medicine [address] [place] [address] Family Medicine, Physician [address] [place], [place] [phone] Social History Tobacco Use Types Packs/Day Years [...] on filedocumented in this encounter Care Teams Helix Coil Winder Relationship Specialty Start Date End Date Viki Cloud MD [address] [facility] [place] [id number] PCP - General 01/18/17 09/18/22 documented as of this encounter
--- OUTSIDE RECORDS SUMMARY | 2025-02-09 20:00 | XMS_ITS | Encounter Summary ---
Author Organization [facility] Address [address] [place] [address] Phone Care Team Providers Care Ceiling Cleaner Name Role Phone Viki Cloud MD Primary Care Provider Encounter Details Date Type Department Care Team (Late st Contact Info) Description 01/24/2017 Conversion Encounter [facility] [place] [facility] [address] [place] [address] Social History Tobacco Use Types Packs/Day Years Used Date Smoking Tobacco: Never Comments:Never smoker Comments Unknown Sex and Gender Information Value Date Recorded Sex Assigned at Not on file Legal Sex Female 4:47 PM EDT Gender Identity Not on file Sexual Orientation Not on file documented as of this encounter Plan of Treatment Not on file documented as of this encounter Visit Diagnoses Not on filedocumented in this encounter Care Teams Ceiling Cleaner Relationship Specialty Start Date End Date Viki Cloud MD [address] [place] [address] PCP - General 01/18/17 09/18/22 documented as of this encounter
--- OUTSIDE RECORDS SUMMARY | 2025-02-09 20:00 | XMS_ITS | Encounter Summary ---
Author Organization [facility] Address [address] [place] [phone] Phone Care Team Providers Care Grape Cutter Name Role Phone Viki Cloud MD Primary Care Provider Encounter Details Date Type Department Care Team (Late st Contact Info) Description 12/21/2011 Documentation [facility] [place] Medicine [address] [place] [address] Family Medicine, Physician [address] [phone] Social History Tobacco Use Types Packs/Day Years [...] on filedocumented in this encounter Care Teams Grape Cutter Relationship Specialty Start Date End Date Viki Cloud MD [address] [facility] [place] [address] PCP - General 01/18/17 09/18/22 documented as of this encounter
--- OUTSIDE RECORDS SUMMARY | 2025-02-09 20:00 | XMS_ITS ---
Author Name [facility] Organization Unknown Results Test Name/Text Value Interpretation Date Range Source Bacteria Throat Cult SEE NOTE Normal 05/04/2024 [facility] History of Medication Use Medication Directions Dispensed Refills Start Date End Date Stat us No known medications No known medications active Problems Problem Status Onset Date Problem Type Date of Resoluti on Source Sore throat active EncounterDiagnosisAct CCT Viral URI active EncounterDiagnosisAct [facility] Episodic tension-type headache active 2024-05-01 ProblemAct [facility] Encounters Encounter Type Encounter Reason Primary Diagnosis Location Date Ambulatory Acute pharyngitis, unspecified Acute pharyngitis, unspecified [facility] 05/01/2024 Ambulatory Contact with and (suspected) exposure to covid-19 [facility] 05/28/2022 Care Team Organization Name Specialty Phone Email Start Date End Da te [facility] NO PCP Primary Care 05/02/2024 [facility] 05/28/2022 08/26/2024 [facility] 05/28/2022 05/28/2022
--- OUTSIDE RECORDS SUMMARY | 2025-02-09 20:00 | XMS_ITS | Encounter Summary ---
Author Organization [facility] Address [address] [place] [phone] Phone Care Team Providers Care Costing Manager Name Role Phone Viki Cloud MD Primary Care Provider Encounter Details Date Type Department Care Team (Late st Contact Info) Description 12/29/2012 Documentation [facility] Family Medicine [address] [place] [address] Family Medicine, Physician [address] [phone] Social History Tobacco Use Types Packs/Day Years [...] on filedocumented in this encounter Care Teams Costing Manager Relationship Specialty Start Date End Date Viki Cloud MD [address] [facility] [place] [id number] PCP - General 01/18/17 09/18/22 documented as of this encounter
--- OUTSIDE RECORDS SUMMARY | 2025-02-09 20:00 | XMS_ITS | Encounter Summary ---
Author Organization [facility] Address [address] [place] [address] Care Team Providers Care Ruffling Machine Operator Name Role Phone Pcp, No Primary Care Provider Unavailabl e Encounter Details Date Type Department Care Team (Late st Contact Info) Description 05/01/2024 Scanned Document [address] [place] [phone] Provider, Generic Social History Tobacco Use Types Packs/Day Years Used Date Smoking Tobacco: Never Smokeless Tobacco: Never Comments Unknown Sex and Gender Information Value Date Recorded Sex Assigned at Not on file Legal Sex Female 4:00 PM EST Gender Identity Not on file Sexual Orientation Not on file documented as of this encounter Plan of Treatment Not on file documented as of this encounter Visit Diagnoses Not on filedocumented in this encounter Care Teams Ruffling Machine Operator Relationship Specialty Start Date End Date Pcp, Vicky PCP - General 03/31/24 documented as of this encounter
--- OUTSIDE RECORDS SUMMARY | 2025-02-09 20:00 | XMS_ITS | Clinical Summary ---
Author Organization [facility] Address [address] [place] [address] Care Team Providers Care Entry Level Assistant Manager Name Role Phone Unavailable Primary Care Provider Unavailabl e Social History Tobacco Use Types Packs/Day Years Used Date Smoking Tobacco: Never Assessed Comments Unknown Sex and Gender Information Value Date Recorded Sex Assigned at Not on file Legal Sex Female 8:38 PM EST Gender Identity Not on file Sexual Orientation Not on file Obstetrics History Plan of Treatment Health Maintenance Due Date Last Done Comments DTaP,Tdap,and Td Vaccines (1 - Tdap) 2014 Hepatitis B Vaccines (1 of 3 - 19+ 3-dose series) 2014 Cervical Cancer Screening: P ap Smear 2016 HIV Screening 07/05/2023 Hepatitis C Screening 07/05/2023 Social Influencers of Health Screening 07/05/2023 Depression Screening 06/10/2024 COVID-19 Vaccine ( - 2023-2 5 season) 2025 Influenza Vaccine (#1) 2025 HIB Vaccines Aged Out No longer eligi ble based on patient's age to complete this topic HPV Vaccines Aged Out No longer eligi ble based on patient's age to complete this topic Hepatitis A Vaccines Aged Out No long er eligible based on patient's age to complete this topic IPV Vaccines Aged Out No longer eligi ble based on patient's age to complete this topic MMR Vaccines Aged Out No longer eligi ble based on patient's age to complete this topic Meningococcal ACWY Vaccine Aged Out N o longer eligible based on patient's age to complete this topic Meningococcal B Vaccine Aged Out No l onger eligible based on patient's age to complete this topic Pneumococcal Vaccine: Pediat rics (0 to 5 Years) and At-Risk Patients (6 to 49 Years) Aged Out No longer eligible b ased on patient's age to complete this topic RSV Immunization Patients Un dayo 20 months Aged Out No longer eligible b ased on patient's age to complete this topic Varicella Vaccines Aged Out No longer eligible based on patient's age to complete this topic
--- OUTSIDE RECORDS SUMMARY | 2025-02-09 20:00 | XMS_ITS | Clinical Summary ---
Author Organization [facility] Address [address] [place] [address] Care Team Providers Care Instructor Kindergarten Name Role Phone Unavailable Primary Care Provider Unavailabl e Allergies No known active allergies Medications Medication Sig Dispensed Refills Start Date End Date Status ondansetron (ZOFRAN-ODT) 4 MG disintegrating tablet Take 1 tablet (4 mg total) by mouth every 6 (six) hours as needed for nausea. 20 tablet 0 05/13/2022 Active benzonatate (Tessalon Perles) 100 MG capsule Take 2 capsules (200 mg total) by mouth 3 (three) times a day as needed for cough. 15 capsule 0 05/13/2022 Active ibuprofen 600 MG tablet Take 1 tablet (600 mg total) by mouth every 6 (six) hours as needed for pain. 20 tablet 0 05/13/2022 Active Active Problems No known active problems Social History Tobacco Use Types Packs/Day Years Used Date Smoking Tobacco: Never Assessed Sex and Gender Information Value Date Recorded Sex Assigned at Female 05/12/2022 9:48 PM EST Gender Identity Not on file Sexual Orientation Not on file Job Start Date Occupation Industry Not on file Not on file Not on file Last Filed Vital Signs Vital Sign Reading Time Taken Comments Blood Pressure 106/73 05/13/2022 1:01 AM EST Pulse 87 05/13/2022 1:01 AM EST Temperature 36.4 C (97.6 F) 05/13/2022 1:01 AM EST Respiratory Rate 16 05/13/2022 1:01 AM EST Oxygen Saturation 95% 05/13/2022 1:01 AM EST Inhaled Oxygen Concentration - - Weight - - Height - - Body Mass Index - - Plan of Treatment Health Maintenance Due Date Last Done Comments Hepatitis B Vaccines (1 of 3 - 3-dose series) 1995 Hepatitis C Screening 1995 COVID-19 Vaccine (#1) 01/06/1996 Depression Screening 2007 Preventative Health Evaluation 2013 Cervical Cancer Screening (Pap Smear) 2016 DTap / Tdap / Td (7 - Td or Tdap) 07/11/2017 07/11/2007, 02/08/2000, 04/09/1997, Additional history exists Influenza Vaccine (#1) 2025 05/08/2011, 2008 Pneumococcal Vaccine Aged Out No long er eligible based on patient's age to complete this topic RSV Ped < 20 months Aged Out No longe r eligible based on patient's age to complete this topic
--- OUTSIDE RECORDS SUMMARY | 2025-02-09 20:00 | XMS_ITS | Encounter Summary ---
Author Organization [facility] Address [address] [place] [phone] Phone Care Team Providers Care Retail Custodial Associate Name Role Phone Viki Cloud MD Primary Care Provider Encounter Details Date Type Department Care Team (Late st Contact Info) Description 12/08/2014 Documentation [facility] Family Medicine [address] [place], [place] [phone] Family Medicine, Physician [address], [place] [phone] Social History Tobacco Use Types Packs/Day Years [...] on filedocumented in this encounter Care Teams Retail Custodial Associate Relationship Specialty Start Date End Date Viki Cloud MD [address] [place] [address] [place] [id number] PCP - General 01/18/17 09/18/22 documented as of this encounter
--- OUTSIDE RECORDS SUMMARY | 2025-02-09 20:00 | XMS_ITS | Encounter Summary ---
Author Organization [facility] Address [address] [place] [phone] Phone Care Team Providers Care Brand Strategy Manager Name Role Phone Viki Cloud MD Primary Care Provider [phone] Encounter Details Date Type Department Care Team (Late st Contact Info) Description 12/21/2011 Documentation [facility] Family Medicine [address] [place] [address] Family Medicine, Physician [address], [place] [phone] Social History Tobacco Use Types Packs/Day Years [...] on filedocumented in this encounter Care Teams Brand Strategy Manager Relationship Specialty Start Date End Date Viki Cloud MD [address] [facility] [place] [address] PCP - General 01/18/17 09/18/22 documented as of this encounter
--- OUTSIDE RECORDS SUMMARY | 2025-02-09 20:00 | XMS_ITS | Clinical Summary ---
Author Organization [facility] Address [address] [place] [address] Phone Care Team Providers Care Talent Acquisition Assistant Name Role Phone Unavailable Primary Care Provider Unavailabl e Immunizations Immunization Administration Dates Next Due DTaP 5 02/08/2000, 7,01/08/1996, 996,1995 HPV, Quadrivalent 01/14/2008,09/12/2007,07/11/19 08 Hep B, ped/adol 01/08/1996,1995,1995 Hib (PRP-T) 08/07/1996, 6,1995, 996 IPV 02/08/2000, 7,03/09/1996, 996,1995 Influenza Split 04/24/2010 Influenza, injectable, trivalent 03/11/2009 Influenza, intranasal, trivalent 05/08/2011 MMR 02/08/2000,07/10/1996 Meningococcal Conj (Menactra) MCV4P 07/11/2007 Tdap 07/11/2007 Varicella 07/11/2007,02/08/2000 Family History Relation Name Status Comments Father Alive Father: Deafnes s Mother Mother: Mental health NOS Sister Alive Sister: Alive a nd well Social History Tobacco Use Types Packs/Day Years Used Date Smoking Tobacco: Never Comments:Never smoker Comments Unknown Sex and Gender Information Value Date Recorded Sex Assigned at Not on file Legal Sex Female 4:47 PM EDT Gender Identity Not on file Sexual Orientation Not on file Last Filed Vital Signs Vital Sign Reading Time Taken Comments Blood Pressure 92/58 03/26/2013 12:00 AM EDT Pulse 84 04/24/2010 12:00 AM EST Temperature 36.2 C (97.1 F) 03/26/2013 12:00 AM EDT Respiratory Rate - - Oxygen Saturation - - Inhaled Oxygen Concentration - - Weight 51.3 kg (113 lb 3.2 oz) 03/26/2013 12:00 AM EDT Height 155.6 cm (5' 1.25 ) 03/26/2013 12:00 AM E DT Body Mass Index 21.21 03/26/2013 12:00 AM EDT Plan of Treatment Health Maintenance Due Date Last Done Comments DTaP,Tdap,and Td Vaccines (7 - Td or Tdap) 07/11/2017 07/11/2007, 02/08/2000, 04/09/1997, Additional history exists COVID-19 Vaccine ( season) 2024 Influenza Vaccines (#1) 2025 05/08/20 11, 04/24/2010, 03/11/2009 Hepatitis B Vaccines Completed 01/08/1996, 1995, 1995 HIB Vaccines Completed 08/07/1996, 12/10, 1995, Additional history exists IPV Vaccines Completed 02/08/2000, 03/12, 03/09/1996, Additional history exists MMR Vaccines Completed 02/08/2000, 07/10/1996 Meningococcal Vaccine Aged Out 07/11/2007 No thony deanna eligible based on patient's age to complete this topic Varicella Vaccines Completed 07/11/2007, 02/08/2000 HPV Vaccines Completed 01/14/2008, 09/2007, 07/11/2007 Hepatitis A Vaccines Aged Out No long er eligible based on patient's age to complete this topic Men B Vaccine Aged Out No longer elig ible based on patient's age to complete this topic Pneumococcal Vaccine Aged Out No long er eligible based on patient's age to complete this topic
[2025-02-09 20:28] LABS: MANUAL DIFF FLAG NO
[2025-02-09 20:35] LABS: Hematocrit 40.0 % (37.0-47.0); Hemoglobin 14.3 g/dl (12.0-16.0); Imm Gran Abs Auto 0.03 X10*3/uL (0.00-0.03); Imm Gran Pct Auto 0.5 % (0.0-0.4); Lymphocytes Absolute Auto 1.2 X10*3/uL (1.2-4.9); Mean Corpuscular HGB Conc 35.8 g/dl (31.0-35.0); Mean Corpuscular Hemoglobin 29.3 pg (27.0-33.0); Mean Corpuscular Volume 82.0 fL (80.0-98.0); NRBC Abs Auto 0.000 X10*3/uL (0.0-0.012); NRBC Pct Auto 0.0 /100WBC (0.0-0.2); Platelet Count 312 X10*3/uL (160-400); Red Blood Count 4.88 X10*6/uL (4.20-5.50); White Blood Count 5.5 X10*3/uL (4.8-10.8)
[2025-02-09 20:47] LABS: Alanine Aminotransferase 8 U/L (0-31); Albumin Level 3.3 g/dL (3.5-5.0); Alkaline Phosphatase 44 U/L (39-117); Anion Gap 12 (12-20); Aspartate Amino Transferase 18 U/L (5-31); Blood Urea Nitrogen 8 mg/dL (9-16); Calcium 6.5 mg/dL (8.4-10.2); Carbon Dioxide 15 mmol/L (22-29); Chloride 120 mmol/L (96-108); Creatinine Clr Calc Pharmacy 140.0; Estimated Glomerular Filt Rate > 60; Lipase 16 U/L (8-78); Magnesium 1.5 mg/dL (1.6-2.6); Potassium 3.3 mmol/L (3.3-5.1); Sodium 144 mmol/L (135-145); Total Protein 5.2 g/dL (6.5-8.0)
[2025-02-09 21:42] VITALS: BP 118/76; PULSE 68; RESP 15; TEMP 36.9; O2SAT 100
[2025-02-09 21:45] VITALS: BP 117/77; PULSE 78; RESP 15; TEMP 37.1; O2SAT 100
== END 2025-02-09 22:11 | disposition home or self-care (01) ==
PROVIDERS: Physician Assistant Medical; Emergency Provider Emergency Medicine
DX: B34.9 Viral infection, unspecified (principal); R05.9 Cough, unspecified; R51.9 Headache, unspecified; R11.2 Nausea with vomiting, unspecified; Z03.818 Encounter for observation for suspected exposure to other biological agents ruled out
CPT/HCPCS: 36415; 80053; 83690; 83735; 84702; 85025; 87502; 87635; 96361; 96374; 96375; 99284; J0131; J1885; J2405

== ENCOUNTER 2025-02-11 19:19 | Emergency (ER) | payer OTHER, SELFPAY ==
[2025-02-11 19:22] VITALS: BP 110/53; PULSE 76; RESP 18; TEMP 36.9; O2SAT 96; BMI 30.9
--- NOTE | 2025-02-11 19:24 | ED.GENADULT ---
HPI - General Adult General Stated complaint: + covid fever/congested cough Source: patient, RN notes reviewed and old records reviewed Mode of arrival: ambulatory Limitations: no limitations History of Present Illness ED Provider: Evelyn GILL narrative: Patient is a 29-year-old female presenting to the emergency department with complaint of nasal congestion and fevers. States that she was seen here on Saturday for similar complaints, was diagnosed with viral illness. Reports that she took a COVID test at home today which resulted as positive. Has not used any Tylenol or ibuprofen at home today. Able to tolerate PO food and fluids, denies nausea or vomiting. MD complaint: congestion Onset (ago): day(s) Related Data Previous Rx's ?Medication ?Instructions ?Recorded azithromycin 250 mg tablet See Rx Instructions PO .COMPLEX #6 05/14/22 tabs benzonatate 100 mg capsule 100 mg PO TID PRN cough #14 caps 05/14/22 fluticasone propionate 50 2 spray intranasal DAILY #16 grams 05/14/22 mcg/actuation nasal spray,suspension (Flonase Allergy Relief) cefuroxime axetil 250 mg tablet 250 mg PO Q12H #10 tabs 06/01/24 phenazopyridine 200 mg tablet 200 mg PO TID PRN pain 6 doses #6 06/01/24 (Pyridium) tabs nitrofurantoin 100 mg PO Q12H 7 days #14 caps 06/06/24 monohydrate/macrocrystals 100 mg capsule (Macrobid) cetirizine 10 mg tablet (All Day 10 mg PO DAILY #7 tabs 09/02/24 Allergy (cetirizine)) famotidine 20 mg tablet 20 mg PO DAILY #7 tabs 09/02/24 prednisone 20 mg tablet 20 mg PO DAILY #5 tabs 09/02/24 ondansetron 4 mg disintegrating 4 mg PO Q8H PRN nausea and 02/09/25 tablet vomiting #10 tabs Allergies Allergy/AdvReac Type Severity Reaction Status Date / Time environmental allergies AdvReac Itching Verified 02/11/25 19:25 Review of Systems Review of Systems: As per HPI Yes all other systems are reviewed and are negative Constitutional: Constitutional: Reports as per HPI PMFSH Social History Social History Substance Use Type: Marijuana Physical Exam ED Vital Signs: Vital signs have been reviewed and appear to be correct. Blood pressure normal. Heart rate normal. Respiratory rate normal. Temperature normal. Oxygen saturation normal. Const General: cooperative, healthy appearing and no acute distress Orientation/consciousness: oriented to person, oriented to place, oriented to time and patient oriented x3 Limitations: no limitations HENMT Head: Yes normocephalic and Yes atraumatic Ears: external ears normal, TM's normal bilaterally and EAC's normal General nose exam: Normal external nose present, Normal nasal mucous membranes and turbinates present and Normal septum present Face and sinus: Yes face symmetric Mouth: oropharynx normal and moist mucous membranes Throat: Yes posterior oropharynx normal and Yes uvula midline Eyes Pupils: Equal, round and reactive pupils present Neck Neck: Yes normal visual inspection, Yes no lymphadenopathy and Yes supple Resp Effort & Inspection: normal respiratory effort and able to speak in complete sentences Auscultation: clear to auscultation bilaterally Cardio Rate: regular rate Rhythm: regular rhythm Heart sounds: S1 normal heart sound present and S2 normal heart sound present GI Palpation (GI): Soft to palpation and nontender Auscultation: normoactive bowel sounds General: Yes no CVA tenderness Back/Spine/Pelvis Back: no CVA tenderness Skin General skin exam: elasticity normal and turgor normal Neuro General: oriented to person, oriented to place, oriented to time, patient oriented x3, moves all extremities, no focal motor deficits and CN's II-XI intact bilaterally Cranial nerves: Yes Equal, round and reactive pupils present Cognition (Neuro): normal cognition Extrem General: Yes full ROM, Yes no pedal edema and Yes no calf tenderness Psych Mental Status: mental status grossly normal Affect: normal affect Thought process: Normal thought process present Medical Decision Making Medical Decision Making MDM Narrative: Patient is a 29-year-old female presenting to the emergency department with complaint of nasal congestion and fevers. On exam patient is awake, A+Ox3, VS WNL, afebrile, normal neurological exam without focal deficits, physical exam findings as above. Given reported symptoms and physical exam findings, initial differential includes but is not limited to covid, other viral illness. Patient afebrile in triage, did not use any OTC medications today. Low suspicion for pneumonia. Discussed with patient that treatment for COVID is symptom management. Advised alternating Tylenol and ibuprofen as needed for fever and discomfort, ensuring adequate rest and adequate fluid intake. Also recommended use of [id number] nasal saline spray to thin secretions and decreased nasal congestion. Follow up with PCP as needed. Return precautions discussed. Will provide excuse note for work. Patient verbalized understanding of and agreement with plan. Differential Diagnosis Differential Diagnoses: The differential diagnosis associated with the presentation includes as per [facility] Admission/Observation Consideration of admission/observation: Escalation of care including admission/observation considered Patient would have been admitted to the hospital had their clinical presentation warranted hospital admission. External Record Review External record reviewed: Inpatient record, Office record and Outpatient record Discharge Plan Discharge Clinical Impression: COVID-19 Patient Disposition: Home, Self-Care Instructions: Droplet Precautions (ED), COVID-19 (Coronavirus Disease 2019) (ED), COVID-19: Slow the Coronavirus Spread (ED) Additional Instructions: You were evaluated in the emergency department today for congestion, cough, fever. Your home COVID test was positive. You should continue to isolate at home for another 4 days. You should continue to wear mask for 5 days after that. Be sure to get plenty of rest, plenty of fluids. You can take 650 mg of Tylenol or 600 mg ibuprofen every 6 hours as needed for fever or discomfort. If necessary, you can alternate these medications every 3 hours. For example, at 9:00 a.m. take Tylenol, then at noon take ibuprofen, 3:00 p.m. take Tylenol, etc.. We also recommend that you use over the counter nasal saline spray to this secretions and decrease nasal congestion. Return to the emergency department with worsening shortness of breath, chest pain, fever that does not improve with Tylenol or ibuprofen, persistent vomiting, or any other concerning symptoms. You should follow-up with your primary care provider. Prescriptions: No Action azithromycin 250 mg tablet See Rx Instructions .ROUTE .COMPLEX Qty: 6 0RF Rx Instructions: take 500 mg today (day 1), then 250 mg for 4 days (days 2-5) benzonatate 100 mg capsule 100 mg PO TID PRN (Reason: cough) Qty: 14 0RF fluticasone propionate [Flonase Allergy Relief] 50 mcg/actuation spray,suspension 2 spray intranasal DAILY Qty: 16 0RF Rx Instructions: administer into each nostril cefuroxime axetil 250 mg tablet 250 mg PO Q12H Qty: 10 0RF phenazopyridine [Pyridium] 200 mg tablet 200 mg PO TID PRN (Reason: pain) Qty: 6 0RF nitrofurantoin monohyd/m-cryst [Macrobid] 100 mg capsule 100 mg PO Q12H 7 Days Qty: 14 0RF Rx Instructions: must administer with a meal/food prednisone 20 mg tablet 20 mg PO DAILY Qty: 5 0RF cetirizine [All Day Allergy (cetirizine)] 10 mg tablet 10 mg PO DAILY Qty: 7 0RF famotidine 20 mg tablet 20 mg PO DAILY Qty: 7 0RF ondansetron 4 mg tablet,disintegrating 4 mg PO Q8H PRN (Reason: nausea and vomiting) Qty: 10 0RF Stand Alone Forms: Work/School Release Print Language: Indonesian
[2025-02-11 19:43] VITALS: BP 110/53; PULSE 76; RESP 18; TEMP 36.9; O2SAT 96
== END 2025-02-11 19:44 | disposition home or self-care (01) ==
PROVIDERS: Emergency Provider Emergency Medicine
DX: U07.1 COVID-19 (principal)
CPT/HCPCS: 99282